=== PATIENT | female | born 1995 | race Caucasian/White ===

== ENCOUNTER 2018-12-23 10:30 | Emergency (ER) | payer OTHER ==
[2018-12-23 10:46] VITALS: BP 134/73
--- NOTE | 2018-12-23 12:23 | ED Physician Documentation ---
PD HPI URI - Stated complaint Stated Complaint: SINUS/EAR PX - Chief complaint Chief Complaint: Resp - History obtained from History obtained from: Patient - History of Present Illness Timing - onset: How many days ago Timing details: Gradual onset Pain level now: 3 Associated symptoms: Ear pain, Nasal congestion, Sinus pain, Sore throat, Productive cough. No: Fever, Chills, Hemoptysis Improves by: Nothing Similar symptoms before: Diagnosis Recently seen: Not recently seen - Additional information Additional information: There is a 23-year-old woman who presents with complaints about 5 days ago she lost her voice and got cold. She has subsequently developed left-sided ear pain for the past 2 days that she rates at a 3 out of 10.Minimal pain to the right. She had clear nasal mucus that has progressed to yellow and sometimes chunky green. She also complains of frontal sinus pressure. She is tried Tylenol head and cold, liquid cough medications DayQuil none of which seem to be helping. She is coughing and bringing up some white phlegm and feels a little nauseous but denies fever. No vomiting. 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 She does not take medications for this because they do not make her feel well. Review of Systems Constitutional: denies: Fever Ears: reports: Ear pain Nose: reports: Rhinorrhea / runny nose, Congestion, Sinus pressure / pain Throat: reports: Sore throat Cardiac: reports: Palpitations Respiratory: reports: Cough GI: reports: Nausea. denies: Vomiting : denies: Now EGA PD PAST MEDICAL HISTORY - Past Medical History Psych: Depression, Anxiety - Past Surgical History Past Surgical History: Yes General: Appendectomy Cardiovascular: Other - Present Medications Home Medications: Ambulatory Orders Medication Instructions Recorded Confirmed Bcp 12/12/16 Sertraline HCl 50 mg PO DAILY 12/12/16 12/12/16 Amoxicillin 875 mg PO BID #20 tablet 12/23/18 - Allergies Allergies/Adverse Reactions: Allergies Allergy/AdvReac Type Severity Reaction Status Date / Time No Known Drug Allergies Allergy Verified 12/23/18 10:42 - Social History Does the pt smoke?: No Smoking Status: Never smoker Does the pt drink ETOH?: No Does the pt have substance abuse?: No - Immunizations Immunizations are current?: Yes - POLST Patient has POLST: No PD ED PE NORMAL - Vitals Vital signs reviewed: Yes - General General: Alert and oriented X 3, No acute distress, Well developed/nourished - HEENT HEENT: Atraumatic, PERRL, EOMI, Moist mucous membranes, Pharynx benign, Other (The tympanic membrane on the right could not be visualized because of cerumen impaction. There is some cerumen in the left ear canal but there is evidence of erythema and dullness to the tympanic membrane. Oropharynx tonsils are not enlarged no exudate.) - Neck Neck: No adenopathy, Thyroid normal - Cardiac Cardiac: RRR, No murmur - Respiratory Respiratory: No respiratory distress, Clear bilaterally - Derm Derm: Normal color, No rash - Neuro Neuro: Alert and oriented X 3, No motor deficit, No sensory deficit, Normal speech - Psych Psych: Normal mood, Normal affect Results - Vitals Vitals: Vital Signs - 24 hr 12/23/18 10:42 Temperature 37.1 C Heart Rate 83 Respiratory 17 Rate Blood Pressure 134/73 H O2 Saturation 99 Oxygen O2 Source Room air PD MEDICAL DECISION MAKING - ED course Complexity details: d/w patient ED course: Patient with 5 days of an upper respiratory infection now with left ear pain and signs of otitis media. Have treated her with amoxicillin 875 twice daily for 10 days. Discussed mechanical ways to remove the cerumen at home. Recommended avoiding decongestant medications because of her history of PSVT. Departure - Departure Disposition: 01 Home, Self Care Clinical Impression: Otitis media Qualifiers: Otitis media type: unspecified Chronicity: acute Qualified Code(s): H66.90 - Otitis media, unspecified, unspecified ear Condition: Good Instructions: ED Otitis Media Acute Adult Follow-Up: Magda Villatoro PA-C [Primary Care Provider] - Prescriptions: Amoxicillin 875 mg PO BID #20 tablet Comments: Use steam and try to pop the ears. Take ibuprofen up to 4 tablets every 8 hours with food. Take the amoxicillin twice a day as prescribed and use probiotics while taking the antibiotic and for 2 weeks after. I do not see that Delsym would cause tachycardia so it could be used as a cough suppressant. Also consider a teaspoon of honey or tea with honey as a cough suppressant. Follow- up with your primary care provider if not improving.
== END 2018-12-23 12:28 | disposition home or self-care (01) ==
LOC: ED 10:30
DX: H66.90 Otitis media, unspecified, unspecified ear (principal); J06.9 Acute upper respiratory infection, unspecified; H61.21 Impacted cerumen, right ear
CPT/HCPCS: 99282; 99284

== ENCOUNTER 2019-12-03 15:39 | Outpatient (CLI) | payer OTHER ==
--- NOTE | 2019-12-03 16:19 | XRAY Report ---
PROCEDURE: Wrist 3 View LT INDICATIONS: Left wrist pain TECHNIQUE: 3 views of the wrist were acquired. COMPARISON: FINDINGS: Bones: No fractures or dislocations. No suspicious bony lesions. Scaphoid view: Not obtained Soft tissues: No suspicious soft tissue calcifications. IMPRESSION: Normal left wrist radiographs. Reviewed by: Seymour Chauhan MD on 12/03/2019 4:18 PM PDT Approved by: Seymour Chauhan MD on 12/03/2019 4:18 PM PDT Station ID: [id number]
== END 2019-12-03 23:59 | disposition home or self-care (01) ==
LOC: DI.WCP 15:39
PROVIDERS: ATTEND Physician Assistant Medical
DX: M25.532 Pain in left wrist (principal)

== ENCOUNTER 2021-05-04 14:38 | Outpatient (CLI) | payer BC, OTHER ==
[2021-05-04 18:33] LABS: BASOPHILS % (AUTO) 0.6 %; EOSINOPHILS # (AUTO) 0.1 10^3/uL (0.0-0.7); HCT - HEMATOCRIT 43.4 % (37.0-47.0); HGB - HEMOGLOBIN 14.8 g/dL (12.0-16.0); LYMPHOCYTES % (AUTO) 30.1 %; MEAN CORPUSCULAR HGB CONC 34.1 g/dL (32.0-36.0); MEAN CORPUSCULAR VOLUME 85.1 fL (81.0-99.0); MEAN PLATELET VOLUME 10.2 fL (7.9-10.8); MONOCYTES # (AUTO) 0.5 10^3/uL (0.0-1.0); MONOCYTES % (AUTO) 7.9 %; NEUTROPHILS # (AUTO) 4.1 10^3/uL (1.5-6.6); NEUTROPHILS % (AUTO) 60.1 %; PLT - PLATELET COUNT 266 10^3/uL (130-450); WHITE BLOOD COUNT 6.7 x10^3/uL (4.8-10.8)
[2021-05-04 19:16] LABS: ALBUMIN 4.8 g/dL (3.2-5.5); ALBUMIN/GLOBULIN RATIO 1.7 (1.0-2.2); BILIRUBIN,TOTAL 0.8 mg/dL (0.2-1.0); CALCIUM 9.3 mg/dL (8.5-10.3); CREATININE 0.8 mg/dL (0.4-1.0); THYROID STIMULATING HORMONE 5.21 uIU/mL (0.34-5.60); TOTAL PROTEIN 7.7 g/dL (6.7-8.2)
[2021-05-04 19:22] LABS: PROLACTIN 9.51 ng/mL
[2021-05-05 05:21] LABS: PROGESTERONE 1.1 ng/mL
== END 2021-05-04 14:39 | disposition home or self-care (01) ==
LOC: LAB.N 14:38
PROVIDERS: ATTEND Physician Assistant Medical
DX: N92.1 Excessive and frequent menstruation with irregular cycle (principal)
CPT/HCPCS: 36415; 80053; 82670; 84144; 84146; 84443; 84702; 85025

== ENCOUNTER 2021-05-06 09:34 | Emergency (ER) | payer BC, OTHER ==
[2021-05-06] MEDS ORDERED: KETOROLAC 30 MG/ML VIAL IVP STA (10:03)
[2021-05-06 10:10] LABS: BASOPHILS % (AUTO) 0.6 %; EOSINOPHILS % (AUTO) 0.2 %; HCT - HEMATOCRIT 41.4 % (37.0-47.0); HGB - HEMOGLOBIN 14.1 g/dL (12.0-16.0); LYMPHOCYTES # (AUTO) 0.9 10^3/uL (1.5-3.5); LYMPHOCYTES % (AUTO) 16.6 %; MEAN CORPUSCULAR HEMOGLOBIN 28.8 pg (27.0-31.0); MEAN CORPUSCULAR HGB CONC 34.1 g/dL (32.0-36.0); MEAN CORPUSCULAR VOLUME 84.7 fL (81.0-99.0); MEAN PLATELET VOLUME 9.8 fL (7.9-10.8); MONOCYTES # (AUTO) 0.9 10^3/uL (0.0-1.0); MONOCYTES % (AUTO) 17.2 %; NEUTROPHILS # (AUTO) 3.5 10^3/uL (1.5-6.6); NEUTROPHILS % (AUTO) 65.2 %; PLT - PLATELET COUNT 198 10^3/uL (130-450); RED BLOOD COUNT 4.89 10^6/uL (4.20-5.40); WHITE BLOOD COUNT 5.3 x10^3/uL (4.8-10.8)
--- NOTE | 2021-05-06 10:10 | ED Physician Documentation ---
PD HPI ABD PAIN - Stated complaint Stated Complaint: ABD BACK PAIN - Chief complaint Chief Complaint: Abd Pain - History obtained from History obtained from: Patient - History of Present Illness Timing - onset: How many days ago (2) Timing - duration: Days (2) Timing - details: Gradual onset, Still present Quality: Cramping, Sharp, Pain Location: Suprapubic, LLQ Radiation: Lower back Improved by: Laying still Worsened by: Moving, Position, Palpation Associated symptoms: Nausea, Vomiting (once from pain), Diarrhea (once yesterday) Similar symptoms before: Has not had sx before Recently seen: Clinic (2 days ago) - Additional information Additional information: Previously well 26-year-old female has developed acute suprapubic pain beginning 2 days ago. She has had undulation in this pain and this morning had severe pain that caused her to vomit. She had a single episode of diarrhea yesterday. She indicates that she went into see her primary and had blood work done 2 days ago. She complains of worsening pain with urination. She has had her appendix out and she has been having irregular menses X 2 months and neg test one month ago. She has not had ovarian cyst previously. She is not on control. Review of Systems Constitutional: denies: Fever Eyes: denies: Decreased vision Ears: denies: Ear pain Nose: denies: Congestion Throat: denies: Sore throat Cardiac: denies: Chest pain / pressure, Palpitations Respiratory: denies: Dyspnea, Cough GI: reports: Abdominal Pain, Nausea, Vomiting, Diarrhea : denies: Dysuria, Frequency Skin: denies: Rash Musculoskeletal: reports: Back pain. denies: Neck pain, Extremity pain PD PAST MEDICAL HISTORY - Past Medical History Psych: Depression, Anxiety - Past Surgical History Past Surgical History: Yes General: Appendectomy Cardiovascular: Other - Present Medications Home Medications: Ambulatory Orders Medication Instructions Recorded Confirmed HYDROcod/ACETAM 5/325 [[place] 5/325] 1 - 2 tablet PO Q6H PRN #14 tablet 05/06/21 - Allergies Allergies/Adverse Reactions: Allergies Allergy/AdvReac Type Severity Reaction Status Date / Time No Known Drug Allergies Allergy Verified 05/06/21 09:41 - Social History Does the pt smoke?: No Smoking Status: Never smoker Does the pt drink ETOH?: No Does the pt have substance abuse?: No - Immunizations Immunizations are current?: Yes - POLST Patient has POLST: No PD ED PE NORMAL - Vitals Vital signs reviewed: Yes (normal ) - General General: Alert and oriented X 3, No acute distress, Well developed/nourished - HEENT HEENT: Atraumatic, PERRL, EOMI - Neck Neck: Supple, no meningeal sign, No bony TTP - Cardiac Cardiac: RRR, No murmur - Respiratory Respiratory: No respiratory distress, Clear bilaterally - Abdomen Abdomen: Normal bowel sounds, Soft, Non distended, No organomegaly, Other (no tenderness to bimanual palaption of either kidney. epigastric and periumbilical without tenderness. LLQ and L suprapubic pain is elicited with exam and reproducible. worse suprapubic. ) - Back Back: No CVA TTP, No spinal TTP - Derm Derm: Normal color, Warm and dry, No rash - Extremities Extremities: No deformity, No edema - Neuro Neuro: Alert and oriented X 3, casting sorter 2-12 intact, No motor deficit, No sensory deficit, Normal speech Eye Opening: Spontaneous Motor: Obeys Commands Verbal: Oriented GCS Score: 15 - Psych Psych: Normal mood, Normal affect Results - Vitals Vitals: Vital Signs - 24 hr 05/06/21 05/06/21 05/06/21 09:43 10:12 12:09 Temperature 37.7 C Heart Rate 87 86 88 Respiratory 20 14 14 Rate Blood Pressure 129/78 126/84 H 125/108 H O2 Saturation 98 98 100 Oxygen O2 Source Room air - Labs Labs: Laboratory Tests 05/06/21 05/06/21 05/06/21 10:02 10:02 12:40 WBC 5.3 RBC 4.89 Hgb 14.1 Hct 41.4 MCV 84.7 MCH 28.8 MCHC 34.1 RDW 12.0 Plt Count 198 MPV 9.8 Neut # (Auto) 3.5 Lymph # (Auto) 0.9 L [place] # (Auto) 0.9 Eos # (Auto) 0.0 Baso # (Auto) 0.0 Absolute Nucleated RBC 0.00 Nucleated RBC % 0.0 Sodium 137 Potassium 3.8 Chloride 102 Carbon Dioxide 25 Anion Gap 10.0 BUN 11 Creatinine 0.9 Estimated GFR (MDRD) 75 L Glucose 97 Calcium 9.0 Total Bilirubin 0.5 AST 19 ALT 18 Alkaline Phosphatase 39 L Total Protein 7.5 Albumin 4.8 Globulin 2.7 Albumin/Globulin Ratio 1.8 Lipase 29 Urine Color YELLOW Urine Clarity CLEAR Urine pH 7.5 Ur Specific [place] 1.015 Urine Protein NEGATIVE Urine Glucose (UA) NEGATIVE Urine Ketones NEGATIVE Urine Occult Blood MODERATE H Urine Nitrite NEGATIVE Urine Bilirubin NEGATIVE Urine Urobilinogen 0.2 (NORMAL) Ur Leukocyte Esterase NEGATIVE Urine RBC None Seen Urine WBC 0-3 Ur Squamous Epith Cells NONE SEEN Urine Bacteria None Seen Ur Microscopic Review INDICATED Urine Culture Comments NOT INDICATED Urine HCG, Qual NEGATIVE - Rads (name of study) pelvic ultrasound Radiology: Prelim report reviewed (Impression: 1. Probably involuting left cor pus luteum measuring 0.5 cm. Trace free fluid in the pelvis. Normal uterus and endometrium.) PD MEDICAL DECISION MAKING - ED course Complexity details: reviewed results, re-evaluated patient, considered differential, d/w patient ED course: 26-year-old female has had pain for 3 days with specific tenderness to the left lower abdomen and the left suprapubic area. She has had a single episode of vomiting a single episode of diarrhea and on interrogation the inferior vena cava she is not dehydrated. An IV is begun and she is given intravenous Toradol for pain control and an ultrasound of the pelvis is ordered to rule out cyst or torsion. Departure - Departure Disposition: 01 Home, Self Care Clinical Impression: Cyst of ovary Qualifiers: Laterality: left Qualified Code(s): N83.202 - Unspecified ovarian cyst, left side Condition: Stable Instructions: ED Cyst Ovarian Follow-Up: Magda Villatoro PA-C [Primary Care Provider] - Prescriptions: HYDROcod/ACETAM 5/325 [[place] 5/325] 1 - 2 tablet PO Q6H PRN #14 tablet PRN Reason: Pain Comments: Kat, today it looks like the pain in your left lower side is related to an ovarian cyst. The expectation is it may take 1 or 2 days for this to improve. This may cause a problem every month every other month or infrequently. If this becomes a frequent problem it is a reasonable solution to begin control pills to suppress the ovaries. Follow-up with your primary care doctor.
[2021-05-06 10:27] LABS: ALBUMIN 4.8 g/dL (3.2-5.5); ALBUMIN/GLOBULIN RATIO 1.8 (1.0-2.2); BILIRUBIN,TOTAL 0.5 mg/dL (0.2-1.0); CREATININE 0.9 mg/dL (0.4-1.0); POTASSIUM 3.8 mmol/L (3.5-5.0); TOTAL PROTEIN 7.5 g/dL (6.7-8.2)
--- NOTE | 2021-05-06 11:48 | Ultrasound Report ---
PROCEDURE: Pelvic w/Transvag+Doppler Comp INDICATIONS: pelvic pain, L TECHNIQUE: Real-time scanning was performed of the pelvic organs, with image documentation. Additional endovagi nal scanning was necessary due to incomplete visualization of the adnexal and endometrial structures by transabdominal scanning. COMPARISON: CT abdomen and pelvis without contrast 12/12/2016. FINDINGS: Trace free fluid in the pelvis. Uterus: Uterus is anteverted and normal in size at 8.2 x 4.3 x 3.4 cm. Volume 63 cc. No fibroids see n. The endometrium measures 4 mm in combined thickness. Ovaries: Within normal limits. Blood flow seen in both ovaries. Less than 12 ovarian follicles bilat erally. Right ovary measures 3 x 2.3 x 2 cm, volume of 7 cc. Left ovary measures 4.2 x 2.1 x 1.8 cm, volume of 8 cc. -Probable involuted left corpus luteum measuring 0.5 cm. IMPRESSION: 1. Probable involuted left corpus luteum measuring 0.5 cm. Trace free fluid in the pelvis. 2. Normal uterus and endometrium. Reviewed by: Kristopher Healy MD on 05/06/2021 11:46 AM PST Approved by: Kristopher Healy MD on 05/06/2021 11:46 AM PST Station ID: [id number]
[2021-05-06 12:51] LABS: BILIRUBIN,URINE NEGATIVE (NEGATIVE); CLARITY,URINE CLEAR (CLEAR); GLUCOSE, URINE (UA) NEGATIVE (NEGATIVE); KETONES,URINE (UA) NEGATIVE (NEGATIVE); LEUKOCYTE ESTERASE, URINE NEGATIVE (NEGATIVE); NITRITE,URINE NEGATIVE (NEGATIVE); OCCULT BLOOD,URINE MODERATE (NEGATIVE); PH,URINE 7.5 PH (5.0-7.5); PROTEIN,URINE NEGATIVE (NEGATIVE); UROBILINOGEN,URINE 0.2 (NORMAL) E.U./dL (NORMAL)
[2021-05-06 12:52] LABS: HCG UR QUAL NEGATIVE
[2021-05-06 12:57] LABS: BACTERIA,URINE None Seen /HPF (None Seen); RBC,URINE None Seen /HPF (0-5); SQUAMOUS EPITHELIAL CELL,UR NONE SEEN (<= Few); WBC,URINE 0-3 /HPF (0-5)
[2021-05-06 13:40] VITALS: BP 122/73
== END 2021-05-06 13:44 | disposition home or self-care (01) ==
LOC: ED 09:34
DX: N83.202 Unspecified ovarian cyst, left side (principal)
CPT/HCPCS: 36415; 80053; 81001; 81003; 81025; 83690; 85025; 87086; 93975; 96374; 99282

== ENCOUNTER 2021-05-13 15:39 | Emergency (ER) | payer OTHER ==
[2021-05-13 16:17] LABS: BASOPHILS % (AUTO) 0.5 %; EOSINOPHILS # (AUTO) 0.1 10^3/uL (0.0-0.7); HCT - HEMATOCRIT 38.8 % (37.0-47.0); HGB - HEMOGLOBIN 13.6 g/dL (12.0-16.0); LYMPHOCYTES # (AUTO) 1.9 10^3/uL (1.5-3.5); MEAN CORPUSCULAR HEMOGLOBIN 29.6 pg (27.0-31.0); MEAN CORPUSCULAR HGB CONC 35.1 g/dL (32.0-36.0); MEAN CORPUSCULAR VOLUME 84.3 fL (81.0-99.0); MEAN PLATELET VOLUME 9.4 fL (7.9-10.8); MONOCYTES # (AUTO) 0.5 10^3/uL (0.0-1.0); MONOCYTES % (AUTO) 7.8 %; NEUTROPHILS # (AUTO) 3.4 10^3/uL (1.5-6.6); NEUTROPHILS % (AUTO) 58.5 %; PLT - PLATELET COUNT 254 10^3/uL (130-450); RED CELL DISTRIBUTION WIDTH 11.8 % (12.0-15.0); WHITE BLOOD COUNT 5.8 x10^3/uL (4.8-10.8)
[2021-05-13 16:19] LABS: BILIRUBIN,URINE NEGATIVE (NEGATIVE); GLUCOSE, URINE (UA) NEGATIVE (NEGATIVE); KETONES,URINE (UA) NEGATIVE (NEGATIVE); LEUKOCYTE ESTERASE, URINE NEGATIVE (NEGATIVE); NITRITE,URINE NEGATIVE (NEGATIVE); OCCULT BLOOD,URINE MODERATE (NEGATIVE); PROTEIN,URINE NEGATIVE (NEGATIVE); UROBILINOGEN,URINE 0.2 (NORMAL) E.U./dL (NORMAL)
[2021-05-13 16:21] LABS: CLARITY,URINE CLEAR (CLEAR); HCG UR QUAL NEGATIVE
[2021-05-13 16:32] LABS: ALBUMIN 4.7 g/dL (3.2-5.5); ALBUMIN/GLOBULIN RATIO 1.6 (1.0-2.2); BILIRUBIN,TOTAL 0.6 mg/dL (0.2-1.0); CALCIUM 9.3 mg/dL (8.5-10.3); CREATININE 0.9 mg/dL (0.4-1.0); POTASSIUM 3.6 mmol/L (3.5-5.0); TOTAL PROTEIN 7.7 g/dL (6.7-8.2)
[2021-05-13 16:33] LABS: AMORPHOUS SEDIMENT,UR Rare /LPF; BACTERIA,URINE Few /HPF (None Seen); RBC,URINE 0-5 /HPF (0-5); SQUAMOUS EPITHELIAL CELL,UR FEW Squamous (<= Few); WBC,URINE 0-3 /HPF (0-5)
--- NOTE | 2021-05-13 16:56 | ED Physician Documentation ---
PD HPI FEMALE - Stated complaint Stated Complaint: LOW LT ABD PX/FEVER AT SITE - Chief complaint Chief Complaint: Abd Pain - History obtained from History obtained from: Patient - History of Present Illness Timing - onset: How many weeks ago (1) Timing - duration: Weeks (1) Timing - details: Abrupt onset, Still present (She states the pain decreased from the visit 1 week ago but never resolved, and abruptly worsened today while just doing light activity.) Associated symptoms: Pelvic pain (left side). 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 Dissimilar to prior kidney stones.) Recently seen: Emergency Dept (1 weeks ago for similar.) Review of Systems Constitutional: denies: Fever, Chills Nose: denies: Rhinorrhea / runny nose, Congestion Throat: denies: Sore throat Respiratory: denies: Cough : reports: Vaginal bleeding (dark brown blood for past few days, similar to menstrual blood.). 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: Ovarian cysts : Kidney stones Psych: Depression, Anxiety - Past Surgical History Past Surgical History: Yes General: Appendectomy Cardiovascular: Other - Present Medications Home Medications: Ambulatory Orders Medication Instructions Recorded Confirmed HYDROcod/ACETAM 5/325 [[place] 5/325] 1 - 2 tablet PO Q6H PRN #14 tablet 05/06/21 - Allergies Allergies/Adverse Reactions: Allergies Allergy/AdvReac Type Severity Reaction Status Date / Time No Known Drug Allergies Allergy Verified 05/13/21 15:55 - Social History Does the pt smoke?: No Smoking Status: Never smoker Does the pt drink ETOH?: No Does the pt have substance abuse?: No - Family History Family history: reports: Non contributory - Immunizations Immunizations are current?: Yes - POLST Patient has POLST: No PD ED PE NORMAL - Vitals Vital signs reviewed: Yes - General General: Alert and oriented X 3, Well developed/nourished, Other (appears in pain LLQ.) - Neck Neck: Supple, no meningeal sign, No adenopathy - Cardiac Cardiac: RRR, No murmur - Respiratory Respiratory: Clear bilaterally - Abdomen Abdomen: Normal bowel sounds, Non distended, No organomegaly, Other (LLQ suprapubic area with marked local tenderness to percussion and palaption. Refered tender from RLQ. Some local rebound LLQ and suprapubic. ) - Female Female : Deferred - Derm Derm: Normal color, Warm and dry - Neuro Neuro: Alert and oriented X 3, No motor deficit, Normal speech Results - Vitals Vitals: Vital Signs - 24 hr 05/13/21 05/13/21 05/13/21 15:51 16:37 19:26 Temperature 36.6 C Heart Rate 100 72 62 Respiratory 18 16 16 Rate Blood Pressure 137/82 H 135/84 H 124/95 H O2 Saturation 100 98 98 05/13/21 21:00 Temperature Heart Rate 54 L Respiratory 16 Rate Blood Pressure 127/77 O2 Saturation 100 Oxygen O2 Source Room air - Labs Labs: Laboratory Tests 05/13/21 05/13/21 05/13/21 16:05 16:13 16:13 WBC 5.8 RBC 4.60 Hgb 13.6 Hct 38.8 MCV 84.3 MCH 29.6 MCHC 35.1 RDW 11.8 L Plt Count 254 MPV 9.4 Neut # (Auto) 3.4 Lymph # (Auto) 1.9 [place] # (Auto) 0.5 Eos # (Auto) 0.1 Baso # (Auto) 0.0 Absolute Nucleated RBC 0.00 Nucleated RBC % 0.0 Sodium 139 Potassium 3.6 Chloride 100 L Carbon Dioxide 29 Anion Gap 10.0 BUN 13 Creatinine 0.9 Estimated GFR (MDRD) 75 L Glucose 103 H Calcium 9.3 Total Bilirubin 0.6 AST 18 ALT 19 Alkaline Phosphatase 36 L Total Protein 7.7 Albumin 4.7 Globulin 3.0 Albumin/Globulin Ratio 1.6 Lipase 37 Urine Color YELLOW Urine Clarity CLEAR Urine pH 7.0 Ur Specific [place] 1.025 Urine Protein NEGATIVE Urine Glucose (UA) NEGATIVE Urine Ketones NEGATIVE Urine Occult Blood MODERATE H Urine Nitrite NEGATIVE Urine Bilirubin NEGATIVE Urine Urobilinogen 0.2 (NORMAL) Ur Leukocyte Esterase NEGATIVE Urine RBC 0-5 Urine WBC 0-3 Ur Squamous Epith Cells FEW Squamous Amorphous Sediment Rare Urine Bacteria Few Ur Microscopic Review INDICATED Urine Culture Comments NOT INDICATED Urine HCG, Qual NEGATIVE - Rads (name of study) pelvic U/S Radiology: Prelim report reviewed (normal flow both ovaries. Still present left adnexal small cyst. No pelvic free fluid. unknown tissue small mass behind cervix. ), See rad report pelvic/abd CT Radiology: Prelim report reviewed, See rad report (normal study. No CT finding to correspond with US finding. ) PD MEDICAL DECISION MAKING - ED course Complexity details: reviewed results (unclear cause of the pain. ), re-evaluated patient, considered differential (1 week continued pain from ovarian cyst that is worse again today. Consideration for further rupture versus hemorrhage versus torsion or other concerns.), d/w patient Departure - Departure Disposition: 01 Home, Self Care Clinical Impression: Abdominal pain Instructions: ED Abdominal Pain Female Non-Specific Abdominal Pain Follow-Up: Magda Villatoro PA-C [Primary Care Provider] - Comments: Kat, today we did not find any abnormality on your CT scan. The appearance of the cyst on the left side is still present. Your symptoms have resolved completely and the only finding we had today was some blood in the urine. It is possible you have passed a kidney stone if this is the case we would expect no further pain.
--- NOTE | 2021-05-13 19:17 | Ultrasound Report ---
PROCEDURE: Pelvic w/Transvag+Doppler Comp INDICATIONS: left pelvic pain, recent Dx ovarian cyst. pain wor TECHNIQUE: Real-time scanning was performed of the pelvic organs, with image documentation. Additional endovagi nal scanning was necessary due to incomplete visualization of the adnexal and endometrial structures by transabdominal scanning. COMPARISON: None. FINDINGS: No pathologic free abdominal or pelvic fluid. Uterus: Uterus is normal in size at 8.7 x 3.2 x 4 point cm. The endometrium measures 3 mm in combin ed thickness. Right anterior intramural fibroid measuring 16 mm. At the posterior aspect of the cerv ix, there is a heterogeneous 31 mm diameter focus with multiple internal cystic foci, which is indete rminate. Patient demonstrates tenderness overlying this region. Ovaries: Within normal limits bilaterally. Dominant left follicular cyst measuring 10 mm. Intact blo od flow is seen to the bilateral ovaries. IMPRESSION: Indeterminate focus of the posterior aspect of the cervix, over which the patient demonstrates tender ness. Finding may indicate abscess or neoplasm. Reviewed by: Jeronimo Valadez MD on 05/13/2021 7:15 PM PST Approved by: Jeronimo Valadez MD on 05/13/2021 7:15 PM PST Station ID: [id number]
[2021-05-13] MEDS ORDERED: SODIUM CHLORIDE 0.9% 1,000 ML IV STA (19:38)
[2021-05-13] MEDS ORDERED: KETOROLAC 30 MG/ML VIAL IVP STA (19:52)
[2021-05-13] MEDS ORDERED: IOVERSOL 320 100 ML VIAL IVP ONE ×2 (20:26→20:48)
--- NOTE | 2021-05-13 21:29 | CT Report ---
PROCEDURE: Abdomen/Pelvis W INDICATIONS: LLQ abd/pelvic pain. pelvic tissue on US CONTRAST: IV CONTRAST: Optiray 320 ml: 100 PO CONTRAST: *NO PO CONTRAST TECHNIQUE: After the administration of contrast, 5 mm thick sections acquired from the diaphragms to the sym physis. 5 mm thick coronal and sagittal reformats were acquired. For radiation dose reduction, the following was used: automated exposure control, adjustment of mA and/or kV according to patient size . COMPARISON: None. FINDINGS: Image quality: Excellent. ABDOMEN: Lung bases: Lung bases are clear. Heart size is normal. Solid organs: Liver and spleen are normal in size and enhancement. Gallbladder is normal Biliary s ystem is non dilated. Pancreas enhances normally. No adrenal nodules. Kidneys demonstrate normal s ize and enhancement, without hydronephrosis. Peritoneum and bowel: Bowel loops demonstrate normal wall thickness and caliber. No free fluid or a ir. Nodes and vessels: No retroperitoneal or mesenteric adenopathy by size criteria. Aorta and inferior vena cava are normal in size. Miscellaneous: No ventral hernias. PELVIS: Genitourinary: Bladder wall thickness is normal. Miscellaneous: No inguinal hernias or adenopathy. Bones: No suspicious bony lesions. No vertebral body compression fractures. IMPRESSION: 1. No acute abdominal or pelvic abnormality. 2. No abnormality by CT is seen to correspond with the ultrasound findings. Reviewed by: Mingo Witt on 05/13/2021 9:27 PM [facility] Approved by: Mingo Witt on 05/13/2021 9:27 PM [facility] Station ID: [id number]
--- NOTE | 2021-05-13 22:13 | ED Physician Documentation ---
ED Addendum - Addendum Addendum: 05/13/21 22:11 26-year-old female with returns to the emergency department with episodic severe pain in the left lower pelvis. A repeat ultrasound of the pelvis was obtained showing similar findings to previous with a concern for a mass posterior to the uterus potentially an abscess. A CT scan of the abdomen pelvis was obtained demonstrating no abnormality. We did find that the patient had some blood in her urine she has a prior history of kidney stone. On my evaluation the patient is pain-free and I was able to examine her left kidney and right kidney at the bedside with ultrasound and found them to be similar and without evidence of hydronephrosis. My suspicion is this may have been a passed kidney stone. She is currently pain-free symptom-free and is discharged home.
[2021-05-13 22:25] VITALS: BP 124/78
== END 2021-05-13 22:24 | disposition home or self-care (01) ==
LOC: ED 15:39
DX: R10.2 Pelvic and perineal pain (principal); R10.32 Left lower quadrant pain
CPT/HCPCS: 36415; 74177; 76830; 76856; 80053; 81001; 81025; 83690; 85025; 93975; 96374; 99282; 99284; Q9967; 81003; 87086